=== PATIENT | male | born 2005 | race Caucasian/White ===

== ENCOUNTER 2024-06-18 11:06 | Emergency (ER) | payer OTHER ==
[~2024-06-18] VITALS: Ht 172.7 cm; Wt 63.5 kg
[2024-06-18] MEDS ORDERED: LIDOcaine HCl 1% (Local Anesth.) 20 ML VIAL STI STA (11:13)
[2024-06-18 11:14] VITALS: BP 115/82
[2024-06-18 11:15] VITALS: BP 116/86
[2024-06-18] MEDS ORDERED: Diph, Acellular Pertussis, Tet 0.5 ML/VIAL (Tdap) SDV IM ONE (11:15)
[2024-06-18] MEDS ORDERED: POVIDONE IODINE 0.5 OZ/BTL TOP ONE (11:15)
[2024-06-18 11:16] VITALS: BP 116/86
[2024-06-18] MEDS ORDERED: CEPHALEXIN500 MG PO ×2 (11:39→14:34)
== END 2024-06-18 11:52 | disposition home or self-care (01) | DRG 605 ==
LOC: ED 11:06
PROC: 0HQDXZZ Repair Right Lower Arm Skin, External Approach (ICD-10-PCS; principal; 2024-06-18)
DX: S61.511A Laceration without foreign body of right wrist, initial encounter (principal); W26.8XXA Contact with other sharp object(s), not elsewhere classified, initial encounter; Y99.0 Civilian activity done for income or pay

== ENCOUNTER 2024-06-25 16:31 | Emergency (ER) | payer OTHER ==
[~2024-06-25] VITALS: Ht 172.7 cm; Wt 63.0 kg
[~2024-06-25 16:31] MED LIST: CEPHALEXIN500 MG PO
[2024-06-25 16:58] VITALS: BP 125/77
[2024-06-25 17:00] VITALS: BP 117/85
[2024-06-25 17:02] VITALS: BP 119/78
[2024-06-25 17:04] VITALS: BP 119/78
== END 2024-06-25 17:08 | disposition home or self-care (01) | DRG 950 ==
LOC: ED 16:31
DX: S51.811D Laceration without foreign body of right forearm, subsequent encounter (principal); X58.XXXD Exposure to other specified factors, subsequent encounter